=== PATIENT | male | born 1945 | race Caucasian/White ===

== ENCOUNTER 2017-08-13 12:34 | Inpatient (IN) | payer MEDICARE ==
[~2017-08-13] VITALS: Ht 172.7 cm; Wt 145.5 kg
[2017-09-07] MEDS ORDERED: LIPITOR 40MG TA40 MG PO (23:17)
[2017-09-07] MEDS ORDERED: CORDARONE200 MG/TAB PO (23:17)
[2017-09-07] MEDS ORDERED: COREG 6.256.25 MG/TA PO (23:17)
[2017-09-07] MEDS ORDERED: FOLIC ACID0.4 MG PO (23:18)
[2017-09-07] MEDS ORDERED: COZAAR 25MG25 MG/TAB PO (23:20)
[2017-09-07] MEDS ORDERED: KLOR-CON M2020 MEQ PO (23:20)
[2017-09-07] MEDS ORDERED: MULTIPLE VITAMI1 CAP PO (23:20)
[2017-09-07] MEDS ORDERED: NITROSTAT0.4 MG/TAB SL (23:21)
[2017-09-08] VITALS (12 sets, daily range): BP systolic 104–155; BP diastolic 46–81; PULSE 74–88; TEMP 98–98.7
[2017-09-08] MEDS ORDERED: MELATONIN3 MG PO (05:36)
[2017-09-08 10:40] LABS: CALCIUM 8.9 mg/dL (8.4-10.2); CREATININE, serum 0.97 mg/dL (0.66-1.25); POTASSIUM 4.2 mmol/L (3.4-5.0)
[2017-09-08 13:29] LABS: BASO # 0.1 (0.0-0.2); BASO % 0.4 % (0.0-2.0); EOS # 0.3 (0.0-0.7); EOS % 2.6 % (0-4.0); GRAN # 10.5 (1.4-6.5); HEMATOCRIT 39.2 % (42.0-52.0); LYMPH # 1.1 (1.2-3.4); LYMPH % 8.5 % (20.0-51.0); MEAN CELL VOLUME 76 fl (80.0-100.0); MEAN CORPUSCULAR HEMOGLOBIN 23 pg (27.0-31.0); MEAN CORPUSCULAR HGB CONC 31 g/dl (33.0-37.0); MEAN PLATELET VOLUME 9.8 fl (7.4-10.4); MONO # 1.2 (0.1-0.6); MONO % 9.1 % (1.7-9.3); PLATELET COUNT 375 K/mm3 (130-400); RED BLOOD COUNT 5.18 M/mm3 (4.20-5.60)
[2017-09-09] VITALS: BP 106/49; PULSE 62; TEMP 98
[2017-09-09 04:00] VITALS: BP 115/60; PULSE 65; TEMP 97.6
[2017-09-09 07:28] LABS: HEMATOCRIT 38.7 % (42.0-52.0); HEMOGLOBIN 11.9 g/dl (13.5-18.0); MEAN CELL VOLUME 76 fl (80.0-100.0); MEAN CORPUSCULAR HEMOGLOBIN 23 pg (27.0-31.0); MEAN CORPUSCULAR HGB CONC 31 g/dl (33.0-37.0); MEAN PLATELET VOLUME 9.7 fl (7.4-10.4); PLATELET COUNT 376 K/mm3 (130-400); RED BLOOD COUNT 5.11 M/mm3 (4.20-5.60); REDCELL DISTRIBUTION WIDTH-CV 19.8 % (11.5-14.5)
[2017-09-09 07:39] LABS: CALCIUM 8.9 mg/dL (8.4-10.2); CREATININE, serum 0.78 mg/dL (0.66-1.25); POTASSIUM 4.6 mmol/L (3.4-5.0)
[2017-09-09 08:09] VITALS: BP 133/65; PULSE 77; TEMP 97.7
[2017-09-09 09:43] LABS: BAND 9 % (0-10); LYMPHOCYTE 6 % (20.0-51.0); NEUTROPHILS 84 % (42.0-75.2); PLATELET ESTIMATE NORMAL (NORMAL)
[2017-09-09 09:44] LABS: ANISOCYTOSIS 2+; HYPOCHROMIA 1+; MICROCYTOSIS 1+; TARGET CELLS 3+
[2017-09-09 11:48] VITALS: BP 119/81; PULSE 73; TEMP 97.5
[2017-09-09 15:42] VITALS: BP 151/72; PULSE 75; TEMP 97.5
[2017-09-09 19:47] VITALS: BP 116/57; PULSE 81; TEMP 97.6
[2017-09-10] VITALS (7 sets, daily range): BP systolic 109–139; BP diastolic 51–74; PULSE 54–114; TEMP 97.7–98.5
[2017-09-10 06:48] LABS: HEMOGLOBIN 10.7 g/dl (13.5-18.0)
[2017-09-10 06:59] LABS: HEMATOCRIT 34.7 % (42.0-52.0)
[2017-09-11 01:20] VITALS: BP 125/71; PULSE 52; TEMP 98.4
[2017-09-11 03:55] VITALS: BP 140/77; PULSE 55; TEMP 98.2
[2017-09-11 06:54] LABS: HEMOGLOBIN 10.2 g/dl (13.5-18.0)
[2017-09-11 07:04] LABS: HEMATOCRIT 33.6 % (42.0-52.0)
[2017-09-11 11:28] VITALS: BP 111/61; PULSE 53; TEMP 97.9
[2017-09-11] MEDS ORDERED: CEFTRIAXON2 GM/50 ML IV (11:35)
[2017-09-11] MEDS ORDERED: ASPI325T6 PO (11:36)
[2017-09-11] MEDS ORDERED: TYLENOL 8 HR PO (11:44)
[2017-09-11] MEDS ORDERED: ROXICODONE 55 MG/TAB PO (11:44)
[2017-09-11] MEDS ORDERED: COLACE 100100 MG/CAP PO (11:45)
== END 2017-09-11 17:04 | disposition home or self-care (01) | DRG 467 ==
LOC: JCC 09-08 05:06
PROVIDERS: Orthopaedic Surgery; Physician Assistant
PROC: 0SRC0J9 Replacement of Right Knee Joint with Synthetic Substitute, Cemented, Open Approach (ICD-10-PCS; 2017-09-08)
PROC: 0SPC0JZ Removal of Synthetic Substitute from Right Knee Joint, Open Approach (ICD-10-PCS; principal; 2017-09-08 07:30)
DX: T84.53XA Infection and inflammatory reaction due to internal right knee prosthesis, initial encounter (principal); I50.22 Chronic systolic (congestive) heart failure; I25.10 Atherosclerotic heart disease of native coronary artery without angina pectoris; I25.5 Ischemic cardiomyopathy; Z95.1 Presence of aortocoronary bypass graft; G47.33 Obstructive sleep apnea (adult) (pediatric); E78.5 Hyperlipidemia, unspecified; K21.9 Gastro-esophageal reflux disease without esophagitis; Z96.652 Presence of left artificial knee joint; D64.9 Anemia, unspecified; G47.00 Insomnia, unspecified; I48.0 Paroxysmal atrial fibrillation
CPT/HCPCS: 99222; 99231-AI; 99232-AI; A9284; C1713; C1751; C1776; C1894; J0692; J0696; J1100; J2250; J2405; J2704; J3010; J3260; J3370; J7040; J7050

== ENCOUNTER → 2017-08-28 | Outpatient (CLI) | payer MEDICARE, OTHER | LOC: COL.LAB 09:12 | DX: Z01.812 Encounter for preprocedural laboratory examination (principal) ==

== ENCOUNTER → 2017-10-23 | Outpatient (CLI) | payer MEDICARE ==
[~2017-10-23] MED LIST: ASPI325T6 PO; CEFTRIAXON2 GM/50 ML IV; COLACE 100100 MG/CAP PO; CORDARONE200 MG/TAB PO; COREG 6.256.25 MG/TA PO; COZAAR 25MG25 MG/TAB PO; FOLIC ACID0.4 MG PO; KLOR-CON M2020 MEQ PO; LIPITOR 40MG TA40 MG PO; MELATONIN3 MG PO; MULTIPLE VITAMI1 CAP PO; NITROSTAT0.4 MG/TAB SL; ROXICODONE 55 MG/TAB PO; TYLENOL 8 HR PO
== END ==
LOC: ZCOL.LAB 17:01
DX: T84.53XA Infection and inflammatory reaction due to internal right knee prosthesis, initial encounter (principal); B96.4 Proteus (mirabilis) (morganii) as the cause of diseases classified elsewhere

== ENCOUNTER → 2017-11-06 | Outpatient (CLI) | payer MEDICARE ==
[2017-11-06 15:27] LABS: ALBUMIN 3.9 gm/dL (3.5-5.0); BASO # 0.1 (0.0-0.2); BASO % 0.5 % (0.0-2.0); BILIRUBIN,TOTAL 0.2 mg/dL (0.0-1.0); C-REACTIVE PROTEIN 3.2 mg/dL (0.0-0.9); CALCIUM 8.8 mg/dL (8.4-10.2); CREATININE, serum 1.09 mg/dL (0.66-1.25); EOS # 0.4 (0.0-0.7); EOS % 4.1 % (0-4.0); GRAN # 6.4 (1.4-6.5); GRAN % 69.3 % (42.2-75.2); HEMATOCRIT 37.3 % (42.0-52.0); HEMOGLOBIN 11.5 g/dl (13.5-18.0); LYMPH # 1.4 (1.2-3.4); MEAN CELL VOLUME 78 fl (80.0-100.0); MEAN CORPUSCULAR HEMOGLOBIN 24 pg (27.0-31.0); MEAN CORPUSCULAR HGB CONC 31 g/dl (33.0-37.0); MEAN PLATELET VOLUME 10.6 fl (7.4-10.4); MONO % 10.9 % (1.7-9.3); PLATELET COUNT 327 K/mm3 (130-400); POTASSIUM 4.2 mmol/L (3.4-5.0); RED BLOOD COUNT 4.76 M/mm3 (4.20-5.60); REDCELL DISTRIBUTION WIDTH-CV 19.4 % (11.5-14.5); TOTAL PROTEIN 7.7 gm/dL (6.4-8.2)
[2017-11-06 15:52] LABS: ERYTHROCYTE SEDIMENTATION RATE 50 mm/hr (0-30)
== END ==
LOC: COL.LAB 14:40
PROVIDERS: Internal Medicine Infectious Disease
DX: B99.9 Unspecified infectious disease (principal)

== ENCOUNTER → 2017-11-09 | Outpatient (CLI) | payer MEDICARE | LOC: ZCOL.LAB 16:31 | DX: B99.9 Unspecified infectious disease (principal) ==

== ENCOUNTER → 2017-12-18 | Outpatient (CLI) | payer MEDICARE ==
[2017-12-18 15:17] LABS: BASO # 0.1 (0.0-0.2); BASO % 0.5 % (0.0-2.0); EOS # 0.4 (0.0-0.7); EOS % 3.7 % (0-4.0); GRAN # 7.2 (1.4-6.5); GRAN % 70.8 % (42.2-75.2); HEMATOCRIT 40.3 % (42.0-52.0); LYMPH # 1.4 (1.2-3.4); LYMPH % 13.7 % (20.0-51.0); MEAN CELL VOLUME 78 fl (80.0-100.0); MEAN CORPUSCULAR HEMOGLOBIN 23 pg (27.0-31.0); MEAN CORPUSCULAR HGB CONC 30 g/dl (33.0-37.0); MONO # 1.1 (0.1-0.6); PLATELET COUNT 301 K/mm3 (130-400); RED BLOOD COUNT 5.18 M/mm3 (4.20-5.60); REDCELL DISTRIBUTION WIDTH-CV 17.9 % (11.5-14.5)
[2017-12-18 15:27] LABS: ALBUMIN 4.1 gm/dL (3.5-5.0); BILIRUBIN,TOTAL 0.2 mg/dL (0.0-1.0); C-REACTIVE PROTEIN 2.5 mg/dL (0.0-0.9); CALCIUM 8.8 mg/dL (8.4-10.2); CREATININE, serum 0.97 mg/dL (0.66-1.25); POTASSIUM 4.1 mmol/L (3.4-5.0)
[2017-12-18 15:47] LABS: ERYTHROCYTE SEDIMENTATION RATE 38 mm/hr (0-30)
== END ==
LOC: COL.LAB 14:34
PROVIDERS: Internal Medicine Infectious Disease
DX: B99.9 Unspecified infectious disease (principal)

== ENCOUNTER → 2018-01-15 | Outpatient (CLI) | payer MEDICARE ==
[2018-01-15 11:33] LABS: BASO # 0.1 (0.0-0.2); BASO % 0.5 % (0.0-2.0); EOS # 0.3 (0.0-0.7); EOS % 3.4 % (0-4.0); GRAN # 6.7 (1.4-6.5); GRAN % 71.5 % (42.2-75.2); HEMATOCRIT 40.2 % (42.0-52.0); HEMOGLOBIN 12.4 g/dl (13.5-18.0); LYMPH # 1.3 (1.2-3.4); LYMPH % 13.9 % (20.0-51.0); MEAN CELL VOLUME 75 fl (80.0-100.0); MEAN CORPUSCULAR HEMOGLOBIN 23 pg (27.0-31.0); MEAN CORPUSCULAR HGB CONC 31 g/dl (33.0-37.0); MEAN PLATELET VOLUME 10.6 fl (7.4-10.4); MONO % 10.4 % (1.7-9.3); PLATELET COUNT 284 K/mm3 (130-400); RED BLOOD COUNT 5.33 M/mm3 (4.20-5.60); REDCELL DISTRIBUTION WIDTH-CV 18.8 % (11.5-14.5)
[2018-01-15 11:39] LABS: INR 1.1 (0.8-3.0); PROTHROMBIN TIME 12.2 SECONDS (9.7-12.8)
[2018-01-15 11:43] LABS: BILIRUBIN,TOTAL 0.4 mg/dL (0.0-1.0); CALCIUM 8.8 mg/dL (8.4-10.2); CREATININE, serum 0.87 mg/dL (0.66-1.25); MUCOUS Present /lpf; PH 5 (5-8); POTASSIUM 4.6 mmol/L (3.4-5.0); SQUAMOUS EPITHELIAL None Seen /hpf; TOTAL PROTEIN 8.1 gm/dL (6.4-8.2); URINE APPEARANCE Clear; URINE BACTERIA None Seen /hpf; URINE BILIRUBIN Negative (NEGATIVE); URINE BLOOD Negative (NEGATIVE); URINE COLOR Yellow; URINE GLUCOSE Negative (NEGATIVE); URINE KETONE Negative (NEGATIVE); URINE LEUKOCYTE ESTERASE Negative (NEGATIVE); URINE NITRATE Negative (NEGATIVE); URINE PROTEIN(semi-quant) Negative (NEGATIVE); URINE RBC 0-2 /hpf; URINE UROBILINOGEN Negative (NEGATIVE)
[2018-01-15 11:51] LABS: COLLECTION METHOD CLEAN CATCH
== END ==
LOC: COL.LAB 10:19
PROVIDERS: Orthopaedic Surgery
DX: Z01.812 Encounter for preprocedural laboratory examination (principal)

== ENCOUNTER 2018-02-08 10:53 | Outpatient (CLI) | payer MEDICARE ==
[~2018-02-08] VITALS: Ht 172.7 cm; Wt 146.9 kg
[2018-02-08 11:11] VITALS: BP 124/61; PULSE 62; TEMP 97.4
== END 2018-02-08 12:27 | disposition home or self-care (01) ==
LOC: EUO 10:53 → MEDICAL 10:54 → EUO 11:00
DX: Z45.2 Encounter for adjustment and management of vascular access device (principal); T84.53XA Infection and inflammatory reaction due to internal right knee prosthesis, initial encounter; Z79.2 Long term (current) use of antibiotics; Z96.651 Presence of right artificial knee joint
CPT/HCPCS: OP; C1751

== ENCOUNTER → 2018-06-07 | Outpatient (REF) | LOC: ZMSC 10:18 | DX: Z01.89 Encounter for other specified special examinations (principal) ==